=== PATIENT | female | born 1985 | race Caucasian/White ===

== ENCOUNTER 2021-05-25 05:17 | Emergency (ER) | payer BC ==
[2021-05-25 05:35] VITALS: BP 126/82; PULSE 95; TEMP 99.7; BMI 27.3
[2021-05-25] MEDS ORDERED: SODIUM CHLORIDE 1,000 ML IV ONE (05:38)
[2021-05-25] MEDS ORDERED: KETOROLAC TROMETHAMINE 30 MG/1 ML VIAL IVPUSH ONE (05:38)
[2021-05-25] MEDS ORDERED: KETOROLAC TROMETHAMINE 30 MG/1 ML VIAL ONE (05:41)
[2021-05-25 06:38] LABS: EPI CELLS 7 /uL (0-25.1); HYALINE CASTS 2 /uL (0-3.1); PH,URINE 6.5 (5.0-8.0); URINE APPEARANCE CLEAR; URINE BACTERIA 1341 /uL (0-1359); URINE BILIRUBIN NEGATIVE (NEGATIVE); URINE COLOR YELLOW; URINE GLUCOSE (UA) NEGATIVE (NEGATIVE); URINE KETONE NEGATIVE (NEGATIVE); URINE LEUK ESTERASE 2+ (NEGATIVE); URINE NITRITE NEGATIVE (NEGATIVE); URINE PROTEIN NEGATIVE (NEGATIVE); URINE RBC 28 /uL (0-23.9); URINE UROBILINOGEN 0.2 mg/dL (0.2-1.0); URINE WBC 259 /uL (0-25.8)
[2021-05-25 06:51] LABS: BASO % 0.1 % (0-2.0); EOS % 0.3 % (0-4.5); HEMOGLOBIN 14.2 GM/dL (10.7-15.3); LYMPH % 12.9 % (8-40); MCH 30.6 pg (25.7-33.7); MCHC 34.6 g/dl (32.0-36.0); MEAN CELL VOLUME 88.2 fl (80-96); MEAN PLT VOLUME 7.5 fl (7.5-11.1); MONO % 5.5 % (3.8-10.2); NEUT % 81.2 % (42.8-82.8); PLATELET COUNT 277 10^3/uL (134-434); RBC 4.65 M/mm3 (3.60-5.2); RDW 12.7 % (11.6-15.6); WHITE BLOOD COUNT 13.8 K/mm3 (4.0-10.0)
[2021-05-25] MEDS ORDERED: NITROFURANTOIN MACROCRYSTAL 50 MG CAPSULE (FP) PO SCH (07:15)
[2021-05-25 07:34] LABS: ALBUMIN 4.7 g/dl (3.4-5.0); CALCIUM 9.4 mg/dL (8.5-10.1)
[2021-05-25 07:35] LABS: BLOOD UREA NITROGEN 12.4 mg/dL (7-18)
[2021-05-25 07:38] LABS: CREATININE 0.7 mg/dL (0.55-1.3)
[2021-05-25 07:39] LABS: BILIRUBIN,TOTAL 0.7 mg/dL (0.2-1); TOT PROT 8.4 g/dl (6.4-8.2)
[2021-05-25] MEDS ORDERED: NITROFURANTOIN MACROCRYSTAL 50 MG CAPSULE (FP) ONE (09:04)
== END 2021-05-25 09:08 | disposition home or self-care (01) ==
LOC: FER 05:17
PROC: 3E0333Z Introduction of Anti-inflammatory into Peripheral Vein, Percutaneous Approach (ICD-10-PCS; principal; 2021-05-25)
PROC: 3E0337Z Introduction of Electrolytic and Water Balance Substance into Peripheral Vein, Percutaneous Approach (ICD-10-PCS; 2021-05-25)
DX: N39.0 Urinary tract infection, site not specified (principal)
CPT/HCPCS: 36415; 76830-TC; 80053; 81003; 81025; 85025; 87086; 87186; 99284-25